=== PATIENT | female | born 1970 | race Caucasian/White ===

== ENCOUNTER → 2016-06-26 | Outpatient (CLI) | payer OTHER ==
[~2016-06-26] MED LIST: ADVIN10/60 INH; ALBU1AER9 INH; AMT50 PO; MONT1TAB3 PO; OXYC1TAB3 PO
--- NOTE | 2016-06-26 13:35 | DIAGNOSTIC IMAGING REPORT ---
PA CHEST WITH RIGHT-SIDED RIB SERIES CLINICAL HISTORY: Right chest wall pain. Known rib fracture. Persistent pain. FINDINGS: A PA chest radiograph with 4 additional views may right-sided rib series is compared to study dated 06/20/2016. The cardiomediastinal silhouette is unremarkable. The lungs and pleural spaces are clear. No pneumothorax is seen. There is unchanged appearance of a minimally distracted right posterior 7th rib fracture. No additional right-sided rib fracture is seen on the rib series. The remainder of the bony thorax is grossly intact. IMPRESSION: 1. The lungs are clear. 2. Unchanged appearance of a minimally distracted right posterior 7th rib fracture as compared to the 06/20/2016 examination. 3. No new/additional right-sided rib fractures are identified. Electronically signed by: Ishmael Wang M.D. 06/26/2016 1:33 PM
--- NOTE | 2016-06-26 13:43 | DIAGNOSTIC IMAGING REPORT ---
THORACIC SPINE 3 VIEWS CLINICAL HISTORY: Thoracic back pain. Known rib fractures. FINDINGS: AP, lateral, and swimmer's views of the thoracic spine are correlated with lateral chest x-ray dated 10/02/2014. The skeletal structures are well mineralized. There is no radiographic evidence of fracture or malalignment involving the thoracic spine. Vertebral body height and alignment are maintained. The transverse and spinous processes appear intact on the frontal view. The intervertebral disc spaces appear normal. The imaged lung parenchyma appears clear. IMPRESSION: There is no acute bony abnormality seen involving the thoracic spine. Electronically signed by: Ishmael Wang M.D. 06/26/2016 1:41 PM
== END | disposition home or self-care (01) ==
LOC: C.RAD1850 09:57
PROVIDERS: ATTEND Internal Medicine
DX: S22.39XD Fracture of one rib, unspecified side, subsequent encounter for fracture with routine healing (principal); X58.XXXD Exposure to other specified factors, subsequent encounter

== ENCOUNTER → 2016-07-18 | Outpatient (CLI) | payer OTHER ==
--- NOTE | 2016-07-18 16:17 | MAMMOGRAPHY REPORT ---
BILATERAL DIGITAL SCREENING MAMMOGRAM TOMOSYNTHESIS WITH CAD: 07/18/2016 CLINICAL HISTORY: Routine screening examination. TECHNIQUE: Breast tomosynthesis in addition to standard 2D mammography was performed. Current study was also evaluated with a Computer Aided Detection (CAD) system. COMPARISON: Comparison is made to exam dated: 02/09/2014 mammogram - [facility]. BREAST COMPOSITION: There are scattered areas of fibroglandular density in both breasts. FINDINGS: There are benign round and punctate microcalcifications scattered throughout the breasts. No suspicious mass, architectural distortion or cluster of microcalcifications is seen. IMPRESSION: ACR BI-RADS CATEGORY 2: BENIGN There is no mammographic evidence of malignancy. A 1 year screening mammogram is recommended. The p atient will receive written notification of the results. Approximately 10% of breast cancers are not detected with mammography. A negative mammographic repor t should not delay biopsy if a clinically suggestive mass is present. Rosita Miles M.D. ay/:07/18/2016 15:18:43 8Th Grade Teacher: Britany DHILLON(Bita)(Laina), [facility] letter sent: Normal 1/2 BI-RADS Code: ACR BI-RADS Category 2: Benign
== END | disposition home or self-care (01) ==
LOC: C.MAMM 14:27
PROVIDERS: ATTEND Internal Medicine
DX: Z12.31 Encounter for screening mammogram for malignant neoplasm of breast (principal); S22.39XA Fracture of one rib, unspecified side, initial encounter for closed fracture; X58.XXXA Exposure to other specified factors, initial encounter; M85.80 Other specified disorders of bone density and structure, unspecified site

== ENCOUNTER → 2016-07-31 | Outpatient (CLI) | payer OTHER ==
--- NOTE | 2016-07-31 15:58 | DIAGNOSTIC IMAGING REPORT ---
RIBS UNILATERAL WITH PA CHEST CLINICAL HISTORY: Known right rib fracture. Pain. COMPARISON STUDY: Right rib series and chest radiograph June 26, 2016. FINDINGS: There is no pneumothorax or pleural effusion. Alignment of the displaced fracture of the posterior right seventh rib is unchanged since prior exam of June 26, 2016. Fracture is displaced 8 mm. Callus formation is noted. There has been partial interval healing. No additional fractures are identified. Lungs are clear. Cardiac size is normal. Mediastinal contours are normal. IMPRESSION: No change in alignment of the displaced posterior right seventh rib fracture. Partial interval healing since prior exam. No pneumothorax. Electronically signed by: Rome Granger M.D. 07/31/2016 3:57 PM Dictated Date/Time: 07/31/2016 3:53 PM
== END | disposition home or self-care (01) ==
LOC: C.RAD 15:08
PROVIDERS: ATTEND Internal Medicine
DX: S22.31XA Fracture of one rib, right side, initial encounter for closed fracture (principal); X58.XXXA Exposure to other specified factors, initial encounter

== ENCOUNTER → 2016-08-28 | Outpatient (CLI) | payer OTHER | END | disposition home or self-care (01) | LOC: C.RDSM 14:44 | PROVIDERS: ATTEND Physical Medicine & Rehabilitation Sports Medicine | DX: R52 Pain, unspecified (principal) ==

== ENCOUNTER → 2016-08-30 | Outpatient (CLI) | payer OTHER ==
--- NOTE | 2016-08-30 16:06 | DIAGNOSTIC IMAGING REPORT ---
LEFT HIP 2 VIEWS CLINICAL HISTORY: Left hip pain. FINDINGS: AP and frog-leg views of the left hip are obtained. No prior studies are available for comparison at the time of dictation. The skeletal structures are well mineralized. No fracture is seen. The joint space of the hip is well maintained. Mild sclerotic change is noted in the left sacroiliac joint. No erosive disease is identified. The overlying soft tissues are within normal limits. Small phleboliths are observed in the left hemipelvis. IMPRESSION: No acute bony abnormality is identified in the left hip. Electronically signed by: Ishmael Wang M.D. 08/30/2016 4:05 PM Dictated Date/Time: 08/30/2016 4:04 PM
== END | disposition home or self-care (01) ==
LOC: C.RAD1850 15:57
PROVIDERS: ATTEND Internal Medicine Rheumatology
DX: M25.552 Pain in left hip (principal)

== ENCOUNTER → 2016-11-06 | Outpatient (CLI) | payer OTHER ==
[2016-11-13 22:30] LABS: IGA SERUM 210 mg/dL (81-463); TIS TRANS IGA 29 U/mL (<4)
[2016-11-14 13:25] LABS: ENDOMY TIT(REFLEX DO NOT ORDER 1:40 (<1:5); ENDOMYSIAL IGA AB TC 15064 Positive (Negative)
== END | disposition home or self-care (01) ==
LOC: C.LAB1850 14:40
PROVIDERS: ATTEND Internal Medicine Endocrinology, Diabetes & Metabolism
DX: E61.8 Deficiency of other specified nutrient elements (principal); M83.9 Adult osteomalacia, unspecified

== ENCOUNTER → 2017-04-19 | Outpatient (CLI) | payer OTHER ==
[~2017-04-19] MED LIST changes: -OXYC1TAB3 PO
--- NOTE | 2017-04-19 14:43 | DIAGNOSTIC IMAGING REPORT ---
CHEST 2 VIEWS ROUTINE HISTORY: Cough. COMPARISON: Chest 07/31/2016. FINDINGS: The lungs are clear. Cardiac silhouette is normal in size. No pleural effusions. No pneumothorax. Old, healed right seventh rib fracture. IMPRESSION: No acute process. Electronically signed by: Devin Storm M.D. 04/19/2017 2:42 PM Dictated Date/Time: 04/19/2017 2:38 PM
== END | disposition home or self-care (01) ==
LOC: C.RAD1850 14:27
PROVIDERS: ATTEND Physician Assistant Medical
DX: R05 Cough (principal)

== ENCOUNTER → 2017-05-30 | Outpatient (CLI) | payer OTHER | END | disposition home or self-care (01) | LOC: C.LAB1850 11:58 | PROVIDERS: ATTEND Internal Medicine Rheumatology | DX: E55.9 Vitamin D deficiency, unspecified (principal); E61.8 Deficiency of other specified nutrient elements; E34.9 Endocrine disorder, unspecified; M83.9 Adult osteomalacia, unspecified ==